=== PATIENT | female | born 1985 | race Caucasian/White ===

== ENCOUNTER 2022-03-05 11:51 | Emergency (ER) | payer SELFPAY ==
[2022-03-05 13:33] LABS: RED BLOOD COUNT 5.14 M/UL (4.00-5.10); WHITE BLOOD COUNT 11.5 K/UL (4.5-11.0)
[2022-03-05 13:51] LABS: BUN/CREATININE RATIO 8 (0-10)
== END 2022-03-06 11:02 | disposition short-term general hospital (02) ==
LOC: ER1 11:51 → CDU 18:24 → ER1 03-06 11:02
PROVIDERS: Physician Assistant
DX: G93.40 Encephalopathy, unspecified (principal); I10 Essential (primary) hypertension
CPT/HCPCS: 80053; 80307; 84439; 84443; 85025; 99285; G0480